=== PATIENT | female | born 1950 | race Caucasian/White ===

== ENCOUNTER 2021-08-21 15:18 | Inpatient (IN) | payer MEDICARE, OTHER ==
[~2021-08-21] VITALS: Ht 149.9 cm; Wt 123.8 kg
[2021-08-21] MEDS ORDERED: IV NORMAL SALINE 1000 ML BAG IV ONE (17:00)
[2021-08-21 17:19] LABS: HEMATOCRIT 24.6 % (31.2-41.9); MEAN CORPUSCULAR HEMOGLOBIN 31.6 uug (24.7-32.8); MEAN CORPUSCULAR VOLUME 95.4 fL (75.5-95.3); PLATELET COUNT (AUTO) 210 K/uL (179-408)
[2021-08-21 17:24] LABS: CREATININE 4.3 mg/dL (0.6-1.3); POTASSIUM 6.1 mmol/L (3.5-5.1)
[2021-08-21 17:30] LABS: BILIRUBIN,DIRECT 0.1 mg/dL (0.0-0.2); BILIRUBIN,TOTAL 0.2 mg/dL (0.2-1.0); TOTAL PROTEIN, SERUM 6.1 g/dL (6.4-8.2)
[2021-08-21] MEDS ORDERED: CALCIUM CHLORIDE 1 GM/10 ML DISP.SYRIN IVP ONE ×2 (18:30→19:41)
[2021-08-21] MEDS ORDERED: ALBUTEROL SULFATE 2.5 MG/3 ML NEBU NEB ONE (18:30)
[2021-08-21] MEDS ORDERED: FUROSEMIDE 20 MG/2 ML VIAL IVP ONE (18:30)
[2021-08-21] MEDS ORDERED: ALBUTEROL SULFATE 2.5 MG/3 ML NEBU ONE (18:48)
[2021-08-21] MEDS ORDERED: AMLODIPINE (18:55)
[2021-08-21] MEDS ORDERED: CARVEDILOL (18:55)
[2021-08-21] MEDS ORDERED: COREG (18:55)
[2021-08-21] MEDS ORDERED: LIPITOR (18:55)
[2021-08-21] MEDS ORDERED: ALBU8HFA4 (18:55)
[2021-08-21] MEDS ORDERED: NITROGLYCERIN (18:55)
[2021-08-21] MEDS ORDERED: FUROSEMIDE 20 MG/2 ML VIAL ONE (19:41)
[2021-08-21 20:00] VITALS: BP 115/84
[2021-08-21 21:30] VITALS: BP 147/70
[2021-08-21] MEDS ORDERED: TEMAZEPAM 15 MG CAPSULE PO PRN (21:45)
[2021-08-21] MEDS ORDERED: MORPHINE SULFATE 2 MG/1 ML DISP.SYRIN IV PRN (21:45)
[2021-08-21] MEDS ORDERED: ONDANSETRON 4 MG/2 ML VIAL IV PRN (21:45)
[2021-08-21] MEDS ORDERED: ACETAMINOPHEN 325 MG TABLET PO PRN (21:45)
[2021-08-21] MEDS ORDERED: hydrALAZINE HCL 25 MG TABLET PO PRN (21:45)
[2021-08-21 22:19] LABS: CREATININE 4.3 mg/dL (0.6-1.3); POTASSIUM 5.7 mmol/L (3.5-5.1)
[2021-08-21] MEDS ORDERED: SODIUM POLYSTYRENE SULFONATE 15 G/60 ML LIQUID UDC PO ONE (22:30)
[2021-08-21] MEDS: IV NS 1000 ML 1,000 ML IV PRN (23:02)
[2021-08-22] VITALS: BP 141/52
[2021-08-22 04:00] VITALS: BP 128/63
[2021-08-22] MEDS: PANTOPRAZOLE SODIUM 40 MG TABLET.DR PO SCH (06:00)
[2021-08-22 06:22] LABS: PLATELET COUNT (AUTO) 183 K/uL (179-408)
[2021-08-22 06:25] LABS: HEMATOCRIT 22.2 % (31.2-41.9); MEAN CORPUSCULAR HEMOGLOBIN 31.6 uug (24.7-32.8); MEAN CORPUSCULAR VOLUME 95.1 fL (75.5-95.3)
[2021-08-22 06:58] LABS: THYROID STIMULATING HORMONE 23.142 mIU/mL (0.358-3.740)
[2021-08-22 07:31] LABS: BILIRUBIN,TOTAL 0.2 mg/dL (0.2-1.0); MAGNESIUM 2.4 mg/dL (1.8-2.4); PHOSPHOROUS 6.1 mg/dL (2.5-4.9); POTASSIUM 5.4 mmol/L (3.5-5.1); TOTAL PROTEIN, SERUM 5.5 g/dL (6.4-8.2)
[2021-08-22] MEDS ORDERED: Z GUARD REMEDY PASTE 57 GM TUBE TOP PRN (09:45)
[2021-08-22] MEDS ORDERED: SODIUM POLYSTYRENE SULFONATE 15 G/60 ML LIQUID UDC PO ONE (11:30)
[2021-08-22 12:00] VITALS: BP 129/48
[2021-08-22] MEDS: IV NS 1000 ML 1,000 ML IV PRN (13:49)
[2021-08-22 16:00] VITALS: BP 135/43
[2021-08-22] MEDS ORDERED: Z GUARD REMEDY PASTE 57 GM TUBE TOP SCH (17:00)
[2021-08-22] MEDS: CLOTRIMAZOLE 1% CREAM 30 GM TUBE TOP SCH (17:22)
[2021-08-22 20:00] VITALS: BP 118/55
[2021-08-22] MEDS: FUROSEMIDE 40 MG/4 ML VIAL IV SCH (20:19)
[2021-08-22] MEDS: Z GUARD REMEDY PASTE 57 GM TUBE TOP SCH (20:19)
[2021-08-22] MEDS: DOCUSATE SODIUM 100 MG CAPSULE PO SCH (20:19)
[2021-08-23] VITALS: BP 120/67
[2021-08-23 04:00] VITALS: BP 169/82
[2021-08-23 05:53] LABS: HEMATOCRIT 22.1 % (31.2-41.9); PLATELET COUNT (AUTO) 201 K/uL (179-408)
[2021-08-23 05:58] LABS: MEAN CORPUSCULAR HEMOGLOBIN 31.4 uug (24.7-32.8); MEAN CORPUSCULAR VOLUME 95.1 fL (75.5-95.3)
[2021-08-23 06:05] LABS: CREATININE 3.9 mg/dL (0.6-1.3); MAGNESIUM 2.2 mg/dL (1.8-2.4); POTASSIUM 4.4 mmol/L (3.5-5.1)
[2021-08-23] MEDS: PANTOPRAZOLE SODIUM 40 MG TABLET.DR PO SCH (06:10)
[2021-08-23] MEDS: FUROSEMIDE 40 MG/4 ML VIAL IV SCH ×2 (08:11→20:31)
[2021-08-23] MEDS: Z GUARD REMEDY PASTE 57 GM TUBE TOP SCH ×2 (08:13→20:31)
[2021-08-23] MEDS: CLOTRIMAZOLE 1% CREAM 30 GM TUBE TOP SCH ×2 (08:17→17:05)
[2021-08-23 09:09] LABS: *BILIRUBIN,URIN NEGATIVE (NEGATIVE); *BLOOD, URINE 3+ (NEGATIVE); *CLARITY,URINE CLEAR (CLEAR); *COLOR,URINE YELLOW (YELLOW); *KETONES,URINE NEGATIVE (NEGATIVE); *UROBILINOGEN,URINE 0.2 E.U./dl (NORMAL); LEUKOCYTE ESTERASE ,URINE NEGATIVE (NEGATIVE); NITRITE, URINE NEGATIVE (NEGATIVE); PH,URINE 5.5 (5.0-8.0); UGLUCOSE NEGATIVE (NEGATIVE)
[2021-08-23] MEDS: AMLODIPINE 5 MG TABLET PO SCH ×2 (09:59→17:05)
[2021-08-23 12:00] VITALS: BP 140/57
[2021-08-23 12:29] LABS: SQUAMOUS EPITHELIAL CELL,UR MODERATE /HPF (NONE SEEN)
[2021-08-23 12:30] LABS: BACTERIA,URINE MODERATE /HPF (NONE SEEN); WBC,URINE 0-3 /HPF (0-3)
[2021-08-23] MEDS: HEPARIN SODIUM,PORCINE 5,000 UNITS/ML VIAL SQ SCH ×2 (13:39→22:22)
[2021-08-23 16:00] VITALS: BP 151/57
[2021-08-23 20:00] VITALS: BP 138/52
[2021-08-23] MEDS ORDERED: EPOETIN ALFA-EPBX 10,000 UNIT/ML VIAL SQ ONE (20:30)
[2021-08-23] MEDS: DOCUSATE SODIUM 100 MG CAPSULE PO SCH (20:30)
[2021-08-24] VITALS: BP 141/45
[2021-08-24 04:00] VITALS: BP 133/83
[2021-08-24] MEDS: PANTOPRAZOLE SODIUM 40 MG TABLET.DR PO SCH (05:31)
[2021-08-24] MEDS: LEVOTHYROXINE SODIUM 50 MCG TABLET PO SCH (05:31)
[2021-08-24 06:54] LABS: PLATELET COUNT (AUTO) 188 K/uL (179-408)
[2021-08-24 06:56] LABS: HEMATOCRIT 22.1 % (31.2-41.9); MEAN CORPUSCULAR HEMOGLOBIN 31.4 uug (24.7-32.8); MEAN CORPUSCULAR VOLUME 94.4 fL (75.5-95.3)
[2021-08-24 07:07] LABS: CREATININE 3.7 mg/dL (0.6-1.3); MAGNESIUM 1.9 mg/dL (1.8-2.4); PHOSPHOROUS 5.8 mg/dL (2.5-4.9); POTASSIUM 4.2 mmol/L (3.5-5.1)
[2021-08-24 08:30] VITALS: BP 157/60
[2021-08-24] MEDS: FUROSEMIDE 40 MG/4 ML VIAL IV SCH ×2 (09:00→20:37)
[2021-08-24] MEDS: HEPARIN SODIUM,PORCINE 5,000 UNITS/ML VIAL SQ SCH ×2 (09:06→20:52)
[2021-08-24] MEDS: AMLODIPINE 5 MG TABLET PO SCH ×2 (09:07→17:53)
[2021-08-24] MEDS: Z GUARD REMEDY PASTE 57 GM TUBE TOP SCH ×2 (09:08→20:37)
[2021-08-24] MEDS: CLOTRIMAZOLE 1% CREAM 30 GM TUBE TOP SCH ×2 (09:08→17:54)
[2021-08-24 15:42] VITALS: BP 161/68
[2021-08-24] MEDS: DOCUSATE SODIUM 100 MG CAPSULE PO SCH (20:37)
[2021-08-24 20:52] VITALS: BP 156/72
[2021-08-25 00:36] VITALS: BP 155/63
[2021-08-25 04:39] VITALS: BP 140/71
[2021-08-25] MEDS: PANTOPRAZOLE SODIUM 40 MG TABLET.DR PO SCH (05:53)
[2021-08-25] MEDS: LEVOTHYROXINE SODIUM 50 MCG TABLET PO SCH (05:54)
[2021-08-25 07:27] LABS: HEMATOCRIT 24.3 % (31.2-41.9); MEAN CORPUSCULAR HEMOGLOBIN 31.5 uug (24.7-32.8); MEAN CORPUSCULAR VOLUME 94.8 fL (75.5-95.3); PLATELET COUNT (AUTO) 191 K/uL (179-408)
[2021-08-25 07:46] LABS: CREATININE 3.5 mg/dL (0.6-1.3); MAGNESIUM 1.7 mg/dL (1.8-2.4); PHOSPHOROUS 5.4 mg/dL (2.5-4.9); POTASSIUM 4.1 mmol/L (3.5-5.1)
[2021-08-25] MEDS ORDERED: MAGNESIUM SULFATE/D5W 100 ML IV SCH (09:15)
[2021-08-25] MEDS: FUROSEMIDE 40 MG/4 ML VIAL IV SCH ×2 (09:51→20:59)
[2021-08-25] MEDS: AMLODIPINE 5 MG TABLET PO SCH ×2 (09:54→17:05)
[2021-08-25] MEDS: HEPARIN SODIUM,PORCINE 5,000 UNITS/ML VIAL SQ SCH (09:56)
[2021-08-25] MEDS: CLOTRIMAZOLE 1% CREAM 30 GM TUBE TOP SCH ×2 (09:57→17:07)
[2021-08-25] MEDS: Z GUARD REMEDY PASTE 57 GM TUBE TOP SCH ×2 (09:57→21:00)
[2021-08-25 12:05] VITALS: BP 156/61
[2021-08-25 14:22] LABS: *OCCULT BLOOD STOOL NEGATIVE (NEGATIVE)
[2021-08-25 16:40] VITALS: BP 155/52
[2021-08-25 20:01] VITALS: BP 150/74
[2021-08-25] MEDS: DOCUSATE SODIUM 100 MG CAPSULE PO SCH (20:59)
[2021-08-26 00:30] VITALS: BP 153/57
[2021-08-26 04:35] VITALS: BP 148/70
[2021-08-26] MEDS: LEVOTHYROXINE SODIUM 50 MCG TABLET PO SCH (05:52)
[2021-08-26] MEDS: PANTOPRAZOLE SODIUM 40 MG TABLET.DR PO SCH (05:52)
[2021-08-26 07:53] LABS: HEMATOCRIT 22.6 % (31.2-41.9); MEAN CORPUSCULAR HEMOGLOBIN 31.9 uug (24.7-32.8); MEAN CORPUSCULAR VOLUME 94.7 fL (75.5-95.3); PLATELET COUNT (AUTO) 164 K/uL (179-408)
[2021-08-26 07:54] LABS: CREATININE 3.3 mg/dL (0.6-1.3); PHOSPHOROUS 5.6 mg/dL (2.5-4.9); POTASSIUM 4.1 mmol/L (3.5-5.1)
[2021-08-26] MEDS: FUROSEMIDE 40 MG/4 ML VIAL IV SCH ×2 (08:26→20:37)
[2021-08-26] MEDS: AMLODIPINE 5 MG TABLET PO SCH ×2 (08:26→16:41)
[2021-08-26] MEDS: Z GUARD REMEDY PASTE 57 GM TUBE TOP SCH ×2 (08:28→20:37)
[2021-08-26] MEDS: CLOTRIMAZOLE 1% CREAM 30 GM TUBE TOP SCH ×2 (08:28→16:41)
[2021-08-26 11:55] VITALS: BP 157/55
[2021-08-26] MEDS: SEVELAMER CARBONATE 800 MG TABLET PO SCH ×2 (12:38→17:59)
[2021-08-26 16:47] VITALS: BP 155/55
[2021-08-26 18:18] LABS: *BILIRUBIN,URIN NEGATIVE (NEGATIVE); *CLARITY,URINE CLEAR (CLEAR); *COLOR,URINE LIGHT YELLOW (YELLOW); *KETONES,URINE NEGATIVE (NEGATIVE); *UROBILINOGEN,URINE 0.2 E.U./dl (NORMAL); LEUKOCYTE ESTERASE ,URINE NEGATIVE (NEGATIVE); NITRITE, URINE NEGATIVE (NEGATIVE); UGLUCOSE NEGATIVE (NEGATIVE)
[2021-08-26 18:25] LABS: *BLOOD, URINE TRACE (NEGATIVE)
[2021-08-26 18:45] LABS: BACTERIA,URINE NONE SEEN /HPF (NONE SEEN); SQUAMOUS EPITHELIAL CELL,UR MODERATE /HPF (NONE SEEN); WBC,URINE 0-3 /HPF (0-3)
[2021-08-26] MEDS: DOCUSATE SODIUM 100 MG CAPSULE PO SCH (20:37)
[2021-08-26 20:42] VITALS: BP 160/70
[2021-08-26 23:03] VITALS: BP 150/54
[2021-08-27] LABS: *URINE TOTAL PROTEIN RANDOM 67.1 mg/dL (<150/24HR)
[2021-08-27 00:01] LABS: *CREATININE,URINE 28.8 mg/dL (30-125)
[2021-08-27 04:42] VITALS: BP 155/68
[2021-08-27] MEDS: PANTOPRAZOLE SODIUM 40 MG TABLET.DR PO SCH (05:21)
[2021-08-27] MEDS: LEVOTHYROXINE SODIUM 50 MCG TABLET PO SCH (05:21)
[2021-08-27 07:03] LABS: HEMATOCRIT 23.5 % (31.2-41.9); MEAN CORPUSCULAR HEMOGLOBIN 31.9 uug (24.7-32.8); MEAN CORPUSCULAR VOLUME 95.3 fL (75.5-95.3); PLATELET COUNT (AUTO) 155 K/uL (179-408)
[2021-08-27 08:05] LABS: BILIRUBIN,TOTAL 0.2 mg/dL (0.2-1.0); CREATININE 3.2 mg/dL (0.6-1.3); MAGNESIUM 1.6 mg/dL (1.8-2.4); PHOSPHOROUS 4.9 mg/dL (2.5-4.9)
[2021-08-27] MEDS: SEVELAMER CARBONATE 800 MG TABLET PO SCH ×3 (08:37→17:05)
[2021-08-27] MEDS: FUROSEMIDE 40 MG/4 ML VIAL IV SCH (09:25)
[2021-08-27] MEDS: Z GUARD REMEDY PASTE 57 GM TUBE TOP SCH ×2 (09:26→20:44)
[2021-08-27] MEDS: CLOTRIMAZOLE 1% CREAM 30 GM TUBE TOP SCH ×2 (09:26→17:06)
[2021-08-27] MEDS: AMLODIPINE 5 MG TABLET PO SCH ×2 (09:27→17:06)
[2021-08-27] MEDS ORDERED: hydrALAZINE HCL 25 MG TABLET PO SCH (10:30)
[2021-08-27 12:00] VITALS: BP 169/68
[2021-08-27 16:00] VITALS: BP 131/68
[2021-08-27] MEDS: FUROSEMIDE 40 MG TABLET PO SCH (17:05)
[2021-08-27] MEDS: DOCUSATE SODIUM 100 MG CAPSULE PO SCH (20:43)
[2021-08-27 20:46] VITALS: BP 141/89
[2021-08-27] MEDS: hydrALAZINE HCL 25 MG TABLET PO SCH (21:54)
[2021-08-28 04:51] VITALS: BP 157/53
[2021-08-28] MEDS: hydrALAZINE HCL 25 MG TABLET PO SCH ×2 (06:22→13:40)
[2021-08-28] MEDS: LEVOTHYROXINE SODIUM 50 MCG TABLET PO SCH (06:22)
[2021-08-28] MEDS: PANTOPRAZOLE SODIUM 40 MG TABLET.DR PO SCH (06:22)
[2021-08-28 06:47] LABS: HEMATOCRIT 23.2 % (31.2-41.9); MEAN CORPUSCULAR HEMOGLOBIN 31.5 uug (24.7-32.8); MEAN CORPUSCULAR VOLUME 94.6 fL (75.5-95.3); PLATELET COUNT (AUTO) 134 K/uL (179-408)
[2021-08-28 06:58] LABS: CREATININE 3.3 mg/dL (0.6-1.3); MAGNESIUM 1.6 mg/dL (1.8-2.4); PHOSPHOROUS 4.6 mg/dL (2.5-4.9); POTASSIUM 4.2 mmol/L (3.5-5.1)
[2021-08-28 08:37] VITALS: BP 151/80
[2021-08-28] MEDS: SEVELAMER CARBONATE 800 MG TABLET PO SCH ×3 (08:40→17:23)
[2021-08-28] MEDS: AMLODIPINE 5 MG TABLET PO SCH ×2 (08:41→16:20)
[2021-08-28] MEDS: FUROSEMIDE 40 MG TABLET PO SCH ×2 (08:41→16:20)
[2021-08-28] MEDS: CLOTRIMAZOLE 1% CREAM 30 GM TUBE TOP SCH ×2 (08:41→16:20)
[2021-08-28] MEDS: Z GUARD REMEDY PASTE 57 GM TUBE TOP SCH (08:41)
[2021-08-28] MEDS ORDERED: CALCITRIOL 0.25 MCG CAPSULE PO SCH (09:00)
[2021-08-28] MEDS ORDERED: MAGNESIUM SULFATE/D5W 100 ML IV SCH ×3 (10:00→11:30)
[2021-08-28 12:30] VITALS: BP 170/61
[2021-08-28] MEDS ORDERED: LEVO50TA8 PO (13:00)
[2021-08-28] MEDS ORDERED: PANT40TA49 PO (13:00)
[2021-08-28] MEDS ORDERED: AMLO-212 PO (13:00)
[2021-08-28] MEDS ORDERED: CLOT30CR24 TOP (13:00)
[2021-08-28] MEDS ORDERED: FURO40TA5 PO (13:00)
[2021-08-28] MEDS ORDERED: CALC0.254 PO (13:00)
[2021-08-28] MEDS ORDERED: SEVE800T7 PO (13:00)
[2021-08-28] MEDS ORDERED: HYDR-894 PO (13:00)
[2021-08-28] MEDS ORDERED: MAGNESIUM OXIDE 400 MG TABLET PO ONE (14:15)
[2021-08-28 16:20] VITALS: BP 162/61
== END 2021-08-28 18:00 | DRG 469 ==
LOC: ER 15:18 → TELE3 19:00 → MEDSURG3 08-27 10:25
PROVIDERS: ADMIT Internal Medicine; ATTEND Internal Medicine
DX: N17.9 Acute kidney failure, unspecified (principal); E44.0 Moderate protein-calorie malnutrition; E87.1 Hypo-osmolality and hyponatremia; E83.51 Hypocalcemia; R00.1 Bradycardia, unspecified; E87.5 Hyperkalemia; Z68.43 Body mass index [BMI] 50.0-59.9, adult; E83.42 Hypomagnesemia; I69.320 Aphasia following cerebral infarction; Z66 Do not resuscitate; E66.01 Morbid (severe) obesity due to excess calories; E03.9 Hypothyroidism, unspecified; E83.89 Other disorders of mineral metabolism; I12.9 Hypertensive chronic kidney disease with stage 1 through stage 4 chronic kidney disease, or unspecified chronic kidney disease; N18.9 Chronic kidney disease, unspecified; J45.909 Unspecified asthma, uncomplicated; E88.09 Other disorders of plasma-protein metabolism, not elsewhere classified; I69.321 Dysphasia following cerebral infarction; R32 Unspecified urinary incontinence; Z20.822 Contact with and (suspected) exposure to COVID-19
CPT/HCPCS: 36415; 70030-TC; 71045; 76770; 83550; 83735; 83970; 84100; 84156; 84300; 84443; 85025; 87086; 93005; 93307; 97161; A4663; C1758; G0378; J0885; J1644; J1940; J3475; J3490; J7030